=== PATIENT | female | born 1960 | race Caucasian/White ===

== ENCOUNTER → 2022-11-20 | Day surgery (SDC) | payer OTHER ==
[~2022-11-20] VITALS: Ht 175.3 cm; Wt 60.8 kg
[~2022-11-20] MED LIST: IBU600 MG PO; MORGIDOX100 MG PO
== END | disposition home or self-care (01) ==
LOC: ADM 11-17 10:45 → CIR.AMB 10:45
PROVIDERS: ATTEND Obstetrics & Gynecology
DX: N95.0 Postmenopausal bleeding (principal); N84.0 Polyp of corpus uteri; Z20.822 Contact with and (suspected) exposure to COVID-19; Z86.16 Personal history of COVID-19